=== PATIENT | male | born 1955 ===

== ENCOUNTER 2018-11-21 12:36 | Outpatient (CLI) | payer OTHER | END 2018-11-21 12:47 | disposition home or self-care (01) | LOC: RAD 12:36 | DX: N40.0 Benign prostatic hyperplasia without lower urinary tract symptoms (principal); R31.0 Gross hematuria ==

== ENCOUNTER 2022-12-08 13:27 | Outpatient (CLI) | payer OTHER | END 2022-12-08 13:41 | disposition home or self-care (01) | LOC: TOM 13:27 | DX: J32.8 Other chronic sinusitis (principal); J34.89 Other specified disorders of nose and nasal sinuses; R09.82 Postnasal drip; Z98.890 Other specified postprocedural states ==

== ENCOUNTER 2023-04-01 14:41 | Emergency (ER) | payer OTHER ==
[~2023-04-01] VITALS: Ht 177.8 cm; Wt 81.6 kg
[2023-04-01] MEDS ORDERED: TIMOLOL MALEATE5 M4 OP (15:18)
[2023-04-01] MEDS ORDERED: LEVOTHYROXINE75 MCG PO (15:18)
== END 2023-04-01 20:56 | disposition home or self-care (01) ==
LOC: ER 14:41
DX: R50.9 Fever, unspecified (principal); Z85.51 Personal history of malignant neoplasm of bladder; Z88.2 Allergy status to sulfonamides; H40.89 Other specified glaucoma; Z20.822 Contact with and (suspected) exposure to COVID-19
CPT/HCPCS: 36415; 71046; 96372; 99284; J3230

== ENCOUNTER 2023-04-16 08:06 | Outpatient (CLI) | payer OTHER ==
[~2023-04-16 08:06] MED LIST: LEVOTHYROXINE75 MCG PO; TIMOLOL MALEATE5 M4 OP
== END 2023-04-16 08:27 | disposition home or self-care (01) ==
LOC: TOM 08:06
DX: C67.0 Malignant neoplasm of trigone of bladder (principal)
CPT/HCPCS: 74178; Q9965